=== PATIENT | female | born 1960 | race Caucasian/White ===

== ENCOUNTER 2017-07-21 09:54 | Observation (INO) | payer OTHER ==
--- NOTE | 2017-07-21 10:31 | PDOC ---
History of Present Illness - General Chief Complaint: Pain Stated Complaint: FOOT PAIN Time Seen by Provider: 07/21/17 10:19 History Source: Patient Exam Limitations: No Limitations - History of Present Illness Initial Comments: 07/21/17 10:45 57 yr female with c/o pain to the right lateral ankle for 2 days denies injury. Pt states she has pain, swelling and "feels hot". Pt denies fever neg nvd neg chills. Pt with history of Hepatitis. Past History - Past Medical History Allergies/Adverse Reactions: Allergies Allergy/AdvReac Type Severity Reaction Status Date / Time No Known Drug Allergies Allergy Verified 07/21/17 10:03 Home Medications: Ambulatory Orders Azathioprine 50 mg PO DAILY 07/02/13 Budesonide [Entocort EC -] 6 mg PO DAILY 07/02/13 Jason/D3/Mag11/Zinc/Masking Machine Operator/Kendrick/Bor [Caltrate 600+D Plus Tablet] 1 each PO DAILY Levothyroxine [Synthroid -] 75 mcg PO DAILY 07/02/13 Naproxen 250 mg PO BID #14 tablet 07/23/17 Ranitidine [Zantac -] 150 mg PO BID #6 tablet 07/23/17 Anemia: No Asthma: No Cancer: No COPD: No Dementia: No Diabetes: Yes Disorders: Yes (KIDNEY STONES) HTN: No Hypercholesterolemia: No Liver Disease: Yes Thyroid Disease: Yes (HYPO) - Surgical History Abdominal Surgery: Yes (TUMMY TUCK,BREAST LIFT) - Suicide/Smoking/Psychosocial Hx Smoking History: Never smoked Have you smoked in the past 12 months: No Hx Alcohol Use: No Drug/Substance Use Hx: No Substance Use Type: None Review of Systems - Review of Systems Able to Perform ROS?: Yes Is the patient limited Tamazight proficient: No Constitutional: No: Symptoms Reported HEENTM: No: Symptoms Reported Respiratory: No: Symptoms reported Cardiac (ROS): No: Symptoms Reported ABD/GI: No: Symptoms Reported : No: Symptoms Reported Musculoskeletal: Yes: Symptoms Reported *Physical Exam - Vital Signs Last Vital Signs Temp Pulse Resp BP Pulse Ox 99.8 F H 88 18 134/89 99 07/21/17 10:00 07/21/17 10:00 07/21/17 10:00 07/21/17 10:00 07/21/17 10:00 - Physical Exam General Appearance: Yes: Nourished, Appropriately Dressed HEENT: positive: EOMI, YOVANA Neck: positive: Supple. negative: Lymphadenopathy (R), Lymphadenopathy (L) Respiratory/Chest: positive: Lungs Clear, Normal Breath Sounds Extremity: positive: Normal Capillary Refill, Tender (right lateral ankle ), Erythema, Inflammation Integumentary: positive: Normal Color, Dry, Warm Neurologic: positive: curbing stonecutter II-XII NML intact, Fully Oriented, Alert, Normal Mood/ Affect ED Treatment Course - LABORATORY CBC & Chemistry Diagram: 07/22/17 06:00 07/23/17 06:20 - RADIOLOGY Radiology Studies Ordered: Category Date Time Status ANKLE & FOOT-RIGHT* [RAD] Stat Radiology 07/21/17 10:24 Ordered Medical Decision Making - Medical Decision Making 07/21/17 10:26 pt with c/o pain to the right ankle for 2 days swelling, redness warmth to touch pt denies injury , has history of hepatitis on immunosupresant drugs will get xray percocet for pain 11/14 med list: imuran budesonide synthroid 07/21/17 10:46 xray preliminary negative for fracture will send to main ER for further workup signed out to Maureen ADKINS in Main ER *DC/Admit/Observation/Transfer Diagnosis at time of Disposition: Ankle pain, right Qualifiers: Chronicity: acute Qualified Code(s): M25.571 - Pain in right ankle and joints of right foot - Discharge Dispostion Disposition: HOME Condition at time of disposition: Improved - Prescriptions - Referrals - Patient Instructions - Post Discharge Activity
--- NOTE | 2017-07-21 10:56 | PDOC ---
*Physical Exam - Vital Signs Last Vital Signs Temp Pulse Resp BP Pulse Ox 99.8 F H 88 18 134/89 99 07/21/17 10:00 07/21/17 10:00 07/21/17 10:00 07/21/17 10:00 07/21/17 10:00 <Joon Hurtado - Last Filed: 07/21/17 21:06> - Vital Signs Last Vital Signs Temp Pulse Resp BP Pulse Ox 99.8 F H 88 18 134/89 99 07/21/17 10:00 07/21/17 10:00 07/21/17 10:00 07/21/17 10:00 07/21/17 10:00 - Physical Exam General Appearance: Yes: Nourished, Appropriately Dressed. No: Apparent Distress Vascular Pulses: Dorsalis-Pedis (R): 2+, Doralis-Pedis (L): 2+ Extremity: positive: Normal Capillary Refill, Swelling (R ankle), Inflammation ( R ankle). negative: Normal Inspection, Normal Range of Motion (Pt unable to dorsiflex or dorsiextender her R ankle), Erythema (R ankle) Integumentary: positive: Normal Color, Dry, Swelling (R ankle), Other (R ankle is warm to the touch). negative: Erythema, Rash Neurologic: positive: Fully Oriented, Alert, Normal Mood/Affect, Normal Response <Maureen Claros - Last Filed: 07/21/17 21:27> ED Treatment Course - LABORATORY CBC & Chemistry Diagram: 07/21/17 11:33 07/21/17 11:33 - ADDITIONAL ORDERS Additional order review: Laboratory Results 07/21/17 11:33 Sodium 140 Potassium 3.5 Chloride 108 H Carbon Dioxide 27 Anion Gap 5 L BUN 13 Creatinine 0.8 Creat Clearance w eGFR > 60 Random Glucose 103 Uric Acid 4.3 Calcium 8.1 L Total Bilirubin 0.6 AST 23 ALT 35 Alkaline Phosphatase 124 H C-Reactive Protein 9.3 H Total Protein 6.5 Albumin 3.3 L 07/21/17 11:33 RBC 3.97 MCV 94.7 MCHC 34.4 RDW 14.1 MPV 10.0 Neutrophils % 81.1 Lymphocytes % 8.5 Monocytes % 8.9 Eosinophils % 0.9 Basophils % 0.6 - Medications Given in the ED: ED Medications Discontinued Medications Generic Name Dose Route Start Last Admin Trade Name Freq PRN Reason Stop Dose Admin Ketorolac Tromethamine 60 mg 07/21/17 11:59 07/21/17 12:22 Toradol Injection - IM 07/21/17 12:00 60 mg ONCE ONE Administration Lidocaine HCl 10 ml 07/21/17 18:59 07/21/17 20:23 Xylocaine 1% SQ 07/21/17 19:00 10 ml ONCE ONE Administration Oxycodone/Acetaminophen 1 combo 07/21/17 10:24 07/21/17 10:31 Percocet 5/325 - PO 07/21/17 10:25 1 combo ONCE ONE Administration <Joon Hurtado - Last Filed: 07/21/17 21:06> - LABORATORY CBC & Chemistry Diagram: 07/21/17 11:33 07/21/17 11:33 - Medications Given in the ED: ED Medications Discontinued Medications Generic Name Dose Route Start Last Admin Trade Name Freq PRN Reason Stop Dose Admin Oxycodone/Acetaminophen 1 combo 07/21/17 10:24 07/21/17 10:31 Percocet 5/325 - PO 07/21/17 10:25 1 combo ONCE ONE Administration <Sciliano,Maureen - Last Filed: 07/21/17 21:27> Medical Decision Making - Medical Decision Making 07/21/17 16:21 Patient is a 57-year-old female past medical history of hepatitis on immunosuppressants, who presents to the emergency department today for right ankle swelling. Patient was signed out from [facility]. Patient presents with a right swollen ankle for one day. Patient denies any trauma or fall. X-ray obtained from fast track is negative for fracture, evidence of osteoarthritis, osteomyelitis. Lab work shows a slightly elevated white blood cell count at 10.8 , CRP elevated at 9. ESR within normal limits. Uric acid also within normal limits. Possible septic joint? Paged ortho. Pt currently rates her pain an 8/ 10. Toradol ordered for pain. 07/21/17 17:[address] Landaverde. Given pt history on immunosuppresants and lack of trauma to the ankle in addition to swelling and inability to move the ankle, recommends aspiration and observation with ID consult as well. Pt. states her PCP is Ortega Macias 06/16/18 18:14 Pt. does not see Ortega Macias as he is a biscuit packer. She is unsure who her PCP is. Will admit to [facility]. Waiting for exam room to perform needle aspiration 07/21/17 19:11 Case discussed with night attending Dr. Rebollar who will take pt for obs in med surg. Still unable to perform needle aspiration. Sign out for procedure given to Dr. Joon Hurtado. <Maureen Claros - Last Filed: 07/21/17 21:27> *DC/Admit/Observation/Transfer <Joon Hurtado - Last Filed: 07/21/17 21:06> - Discharge Dispostion Decision to Admit order: Yes <Maureen Claros - Last Filed: 07/21/17 21:27> Diagnosis at time of Disposition: Ankle pain, right Qualifiers: Chronicity: acute Qualified Code(s): M25.571 - Pain in right ankle and joints of right foot - Discharge Dispostion Condition at time of disposition: Guarded Procedure Note Procedure: Joint aspiration performed on right ankle with minimal fluid return and mild blood return. Area prepared with iodine and pretreated with 5 ml of lidocaine 1 %. <Joon Hurtado - Last Filed: 07/21/17 21:06>
[2017-07-21 11:53] LABS: BASO % 0.6 % (0-2.0); EOS % 0.9 % (0-4.5); HEMATOCRIT 37.6 % (32.4-45.2); HEMOGLOBIN 12.9 GM/dL (10.7-15.3); LYMPH % 8.5 % (8-40); MCH 32.6 pg (25.7-33.7); MCHC 34.4 g/dl (32.0-36.0); MEAN CELL VOLUME 94.7 fl (80-96); MONO % 8.9 % (3.8-10.2); NEUT % 81.1 % (42.8-82.8); PLATELET COUNT 187 K/MM3 (134-434); RBC 3.97 M/mm3 (3.60-5.2); RDW 14.1 % (11.6-15.6); WHITE BLOOD COUNT 10.8 K/mm3 (4.0-10.0)
[2017-07-21] MEDS ORDERED: KETOROLAC TROMETHAMINE 60 MG/2 ML VIAL IM ONE (11:59)
[2017-07-21] MEDS ORDERED: KETOROLAC TROMETHAMINE 60 MG/2 ML VIAL ONE (12:18)
[2017-07-21 12:27] LABS: ALBUMIN 3.3 g/dl (3.4-5.0); ALK PHOS 124 U/L (45-117); ANION GAP 5 (8-16); BILIRUBIN,TOTAL 0.6 mg/dL (0.2-1.0); BLOOD UREA NITROGEN 13 mg/dL (7-18); CALCIUM 8.1 mg/dL (8.5-10.1); CHLORIDE 108 mmol/L (98-107); CO2 27 mmol/L (21-32); CREATININE 0.8 mg/dL (0.55-1.02); GLUCOSE,RANDOM 103 mg/dL (74-106); POTASSIUM 3.5 mmol/L (3.5-5.1); SGOT/AST 23 U/L (15-37); SGPT/ALT 35 U/L (12-78); SODIUM 140 mmol/L (136-145); TOT PROT 6.5 g/dl (6.4-8.2); URIC ACID 4.3 mg/dL (2.6-7.2)
[2017-07-21 15:41] LABS: ERYTHROCYTE SEDIMENTATION RATE 26 mm/hr (0-30)
[2017-07-21] MEDS ORDERED: LIDOCAINE HCL 1%, 10 MG/ML (50 mL VIAL) SQ ONE (18:59)
[2017-07-21] MEDS ORDERED: LIDOCAINE HCL 1%, 10 MG/ML (20ML VIAL) ONE (19:15)
[2017-07-21] MEDS ORDERED: KETOROLAC TROMETHAMINE 30 MG/1 ML VIAL IVPUSH ONE (21:05)
[2017-07-21] MEDS ORDERED: IBUPROFEN 400 MG TABLET (FP) PO PRN (21:27)
[2017-07-21] MEDS ORDERED: VANCOMYCIN 1,000 MG in DEXTROSE 5%-WATER - 250 ML IVPB ONE (21:27)
--- NOTE | 2017-07-21 21:28 | PN ---
Teaching Attending Note Name of Resident: Manfred Orellana ATTENDING PHYSICIAN STATEMENT I saw and evaluated the patient. Chart, data, imaging reviewed. I reviewed the resident's note and discussed the case with the resident. I agree with the resident's findings and plan as documented. SUBJECTIVE: 57-year-old woman with a Hx of autoimmune hepatitis on azathioprine and budesonide diagnosed 4 years ago, hypothyroidism, c/o right ankle swelling which started on 07/20, started by itself. Denied any trauma to ankle or twisting. Denied any fevers but c/o mild chills. There are no other joints affected. Pt denied any rashes, tick bites, or other insect bites. Sex with only, denied any history of STDs. Difficulty with ambulation. Xray of ankle taken, negative for fracture. Unsuccessful ankle arthrocentesis in ER. Ortho was contacted- Dr. Landaverde, is aware of case. CRP elevated at 9. Mild elevated wbc count. OBJECTIVE: Last Vital Signs Temp Pulse Resp BP Pulse Ox 99.3 F 65 15 146/89 98 07/22/17 00:39 07/22/17 00:39 07/22/17 00:39 07/22/17 00:39 07/22/17 00:39 general -nad, aaox3, appears comofortable heent - at, nc, moist oral mucosa neck -supple cv - s1+s2+rrr chest -cta abdomen- soft, nt msk- right ankle swollen, warm to touch, mild erythema, decreased ROM Abnormal Lab Results 07/21/17 07/21/17 11:33 11:33 WBC 10.8 H Chloride 108 H Anion Gap 5 L Calcium 8.1 L Alkaline Phosphatase 124 H C-Reactive Protein 9.3 H Albumin 3.3 L xray of ankle reviewed ASSESSMENT AND PLAN: #57yo woman, immunosuppressed on azathioprine and budesonide, with monoarthritis of right ankle. No Hx of trauma. Differential diagnosis includes but not limited to septic arthritis, gonococcal arthritis, lyme arthritis, crystal arthritis (goat vs pseudogout), rheumatological cause of arthritis- RA? . Given immunocompromised state, patient is certainly at higher risk of septic arhritis than general population. Less likely gonoccocal given patient's age and monogamy. -admit to med/surg -orthopedics consult for arthrocentesis - send cell count, crystals, culture -Lyme serolgoy -blood cultures x2 -crp, esr -send GC/chlamyidia NAAT from urine -pharngeal/cervical culture for GC -adequate pain control -ibuprofen prn -lower extremity elevation -vancomycin 1g IV stat -ceftriaxone 2g IV q24hrs -ID evaluation -BRODY, RF -c/w home medications -azathioprine, budesonide for now -ekg, cxr see resident note for details -regular diet -DVT ppx- heparin sc
--- NOTE | 2017-07-21 22:16 | HP ---
CHIEF COMPLAINT: ankle swelling PCP: none HISTORY OF PRESENT ILLNESS: 57 y/o f with PMH of autoimmune hepatitis came to hospital with a c omplaint of pain and swelling in her right ankle. started yesterday morning, continiously increasing. Denies trauma, twist, insect bite, swelling in any other joint, alcohol intake, no prior history. Denies fever and chills. Sexually active with . ER course was notable for: (1)cbc, cmp, xray (2) failed arthrocentesis (3) Recent Travel: no PAST MEDICAL HISTORY: as above PAST SURGICAL HISTORY: none Social History: none Family History: no significant falmy history Allergies No Known Drug Allergies Allergy (Verified 07/21/17 10:03) HOME MEDICATIONS: Home Medications Medication Instructions Recorded Azathioprine 50 mg PO DAILY 07/02/13 Budesonide [Entocort EC -] 6 mg PO DAILY 07/02/13 Jason/D3/Mag11/Zinc/Grab Operator/Kendrick/Bor 1 each PO DAILY 07/02/13 [Caltrate 600+D Plus Tablet] Levothyroxine [Synthroid -] 75 mcg PO DAILY 07/02/13 REVIEW OF SYSTEMS CONSTITUTIONAL: Absent: fever, chills, diaphoresis, generalized weakness, malaise, loss of appetite, weight change HEENT: Absent: rhinorrhea, nasal congestion, throat pain, throat swelling, difficulty swallowing, mouth swelling, ear pain, eye pain, visual changes CARDIOVASCULAR: Absent: chest pain, syncope, palpitations, irregular heart rate, lightheadedness , peripheral edema RESPIRATORY: Absent: cough, shortness of breath, dyspnea with exertion, orthopnea, wheezing, stridor, hemoptysis GASTROINTESTINAL: Absent: abdominal pain, abdominal distension, nausea, vomiting, diarrhea, constipation, melena, hematochezia GENITOURINARY: Absent: dysuria, frequency, urgency, hesitancy, hematuria, flank pain, genital pain MUSCULOSKELETAL: as above SKIN: Absent: rash, itching, pallor HEMATOLOGIC/IMMUNOLOGIC: Absent: easy bleeding, easy bruising, lymphadenopathy, frequent infections ENDOCRINE: Absent: unexplained weight gain, unexplained weight loss, heat intolerance, cold intolerance NEUROLOGIC: Absent: headache, focal weakness or paresthesias, dizziness, unsteady gait, seizure, mental status changes, bladder or bowel incontinence PSYCHIATRIC: Absent: anxiety, depression, suicidal or homicidal ideation, hallucinations. PHYSICAL EXAMINATION Vital Signs - 24 hr 07/21/17 10:00 Temperature 99.8 F H Pulse Rate 88 Respiratory 18 Rate Blood Pressure 134/89 O2 Sat by Pulse 99 Oximetry (%) GENERAL: Awake, alert, and fully oriented, in no acute distress. HEAD: Normal with no signs of trauma. EYES: Pupils equal, round and reactive to light, extraocular movements intact, EARS, NOSE, THROAT: Ears normal, nares patent, oropharynx clear without exudates. Moist mucous membranes. NECK: Normal range of motion, LUNGS: Breath sounds equal, clear to auscultation bilaterally. No wheezes, and no crackles. No accessory muscle use. HEART: Regular rate and rhythm, normal S1 and S2 ABDOMEN: Soft, nontender, not distended, normoactive bowel sounds, no guarding, no rebound, no masses. MUSCULOSKELETAL: Normal range of motion at all joints. No bony deformities or tenderness. No CVA tenderness. UPPER EXTREMITIES: 2+ pulses, warm, well-perfused. No cyanosis. No clubbing. No peripheral edema. LOWER EXTREMITIES: right ankle, tender, edematous, erythemtous, decrease range of motion. NEUROLOGICAL: Cranial nerves II-XII intact. Normal speech. PSYCHIATRIC: Cooperative. Good eye contact. SKIN: Warm, dry, normal Laboratory Results - last 24 hr 07/21/17 07/21/17 11:33 11:33 WBC 10.8 H RBC 3.97 Hgb 12.9 Hct 37.6 MCV 94.7 MCH 32.6 MCHC 34.4 RDW 14.1 Plt Count 187 MPV 10.0 Absolute Neuts (auto) 8.8 Neutrophils % 81.1 Lymphocytes % 8.5 Monocytes % 8.9 Eosinophils % 0.9 Basophils % 0.6 Nucleated RBC % 0 ESR 26 Sodium 140 Potassium 3.5 Chloride 108 H Carbon Dioxide 27 Anion Gap 5 L BUN 13 Creatinine 0.8 Creat Clearance w eGFR > 60 Random Glucose 103 Uric Acid 4.3 Calcium 8.1 L Total Bilirubin 0.6 AST 23 ALT 35 Alkaline Phosphatase 124 H C-Reactive Protein 9.3 H Total Protein 6.5 Albumin 3.3 L ASSESSMENT/PLAN: Right ankle swelling. d/d gout, pseudogout, septic, autoimmune, lyme, gonococcal follow nestor, rf, lyme antibody, MLEANY for gono limb elevation cold compression ibuprofen ankle brace orth consult vanco and ceftriaxone ID consult. autoimmune hepatitis continue home med second hand Dr pollock hypothyroidism continue home med orally allowed repeat electrolytes in am regular diet dvt pro; heparin sq dispo; obs med surg Visit type - Emergency Visit Emergency Visit: Yes ED Registration Date: 07/21/17 Care time: The patient presented to the Emergency Department on the above date and was hospitalized for further evaluation of their emergent condition. - New Patient This patient is new to me today: Yes Date on this admission: 07/22/17 - Critical Care Critical Care patient: No
[2017-07-22] MEDS ORDERED: KETOROLAC TROMETHAMINE 30 MG/1 ML VIAL ONE (00:12)
[2017-07-22] MEDS ORDERED: HEPARIN NA (PORCINE) 5,000 UNITS/ML 1ML VIAL ONE (00:12)
[2017-07-22] MEDS ORDERED: RANITIDINE HCL 150 MG TABLET (FP) ONE (00:12)
[2017-07-22] MEDS ORDERED: VANCOMYCIN 1 GRAM (PRE-DOCKED) 1,000 MG/250 ML BAG IVPB ONE (00:13)
[2017-07-22] MEDS: HEPARIN NA (PORCINE) 5,000 UNITS/ML 1ML VIAL SQ SCH ×4 (00:39→21:40)
[2017-07-22] MEDS: RANITIDINE HCL 150 MG TABLET (FP) PO SCH ×3 (00:39→21:40)
[2017-07-22 01:36] VITALS: BMI 27.3
[2017-07-22] MEDS: LEVOTHYROXINE NA 75 MCG TABLET (FP) PO SCH (06:06)
[2017-07-22 07:33] LABS: BASO % 0.7 % (0-2.0); EOS % 2.8 % (0-4.5); HEMATOCRIT 36.4 % (32.4-45.2); HEMOGLOBIN 12.7 GM/dL (10.7-15.3); LYMPH % 13.1 % (8-40); MCH 33.1 pg (25.7-33.7); MCHC 34.9 g/dl (32.0-36.0); MEAN CELL VOLUME 94.9 fl (80-96); MEAN PLT VOLUME 9.9 fl (7.5-11.1); MONO % 9.9 % (3.8-10.2); NEUT % 73.5 % (42.8-82.8); PLATELET COUNT 178 K/MM3 (134-434); RBC 3.83 M/mm3 (3.60-5.2); RDW 14.1 % (11.6-15.6); WHITE BLOOD COUNT 6.7 K/mm3 (4.0-10.0)
[2017-07-22 07:51] LABS: INR 1.09 (0.82-1.09); PROTHROMBIN TIME (PATIENT) 12.3 SEC (9.7-13.0)
[2017-07-22 07:59] LABS: ANION GAP 6 (8-16); BLOOD UREA NITROGEN 14 mg/dL (7-18); CALCIUM 8.4 mg/dL (8.5-10.1); CHLORIDE 109 mmol/L (98-107); CO2 27 mmol/L (21-32); CREATININE 0.8 mg/dL (0.55-1.02); GLUCOSE,RANDOM 92 mg/dL (74-106); MAGNESIUM 2.3 mg/dL (1.8-2.4); PHOSPHOROUS 3.9 mg/dL (2.5-4.9); SGOT/AST 36 U/L (15-37); SGPT/ALT 48 U/L (12-78); SODIUM 142 mmol/L (136-145)
[2017-07-22 08:01] LABS: ALK PHOS 121 U/L (45-117); BILIRUBIN,TOTAL 0.6 mg/dL (0.2-1.0)
[2017-07-22] MEDS ORDERED: CEFTRIAXONE 2 GM in DEXTROSE 5%-WATER 100 ML IVPB SCH (10:00)
[2017-07-22] MEDS ORDERED: BUDESONIDE 6 MG PO SCH (10:00)
[2017-07-22] MEDS ORDERED: DEXTROSE 5%-WATER 100 ML IVPB ONE (10:24)
[2017-07-22] MEDS: azaTHIOprine 50 MG TABLET PO SCH ×2 (10:55→19:45)
--- NOTE | 2017-07-22 13:02 | PN ---
Progress Note (short form) - Note Progress Note: Pt seen and examined. She is a 57 year old female with no recent h/o trauma or illness, or infection, who went to bed 2 days ago and was fine, aand woke up with right ankle pain, swelling. Attempted aspiration in ER, no fluid. She states it is getting better. AVSS Labs: WBC=6.7 ESR=26 CRP=9.3 PE Right foot and ankle look ok, only very mild swelling, no erythema No pain with full ROM of the foot or ankle Only very mildly hot, otherwise looks fine Xrays Of right foot and ankle are nl Imp Possible bug/spider bite. No active signs of infection. She does not have an intra articular infection. Orthopedically there are no issues. Rec Antibiotics today, then likely can DC home tomorrow. [facility]
[2017-07-22] MEDS ORDERED: KETOROLAC TROMETHAMINE 30 MG/1 ML VIAL IVPUSH ONE (15:28)
--- NOTE | 2017-07-22 15:40 | PN ---
Progress Note (short form) - Note Progress Note: ID consult Imp/reccd 57 year old woman with autoimmune hepatitis woke up with right ankle pain - unable to walk minimal erythema +swelling no fevers or chills monagomous no injury +FROM ankle joint started on vanco/rocephin in ED no signs of septic arthritis or cellulitis suspect inflammatory disease- has improved markedly overnight with nonsteroidals suggest d/c antibiotics and observe if pain persists consider rheum eval and MRI lyme sent and pending doubt STD- gc and chlymadia NAAT pending d/w hospitalist Problem List - Problems (1) Ankle pain, right Code(s): M25.571 - PAIN IN RIGHT ANKLE AND JOINTS OF RIGHT FOOT Qualifiers: Chronicity: acute Qualified Code(s): M25.571 - Pain in right ankle and joints of right foot
--- NOTE | 2017-07-22 15:43 | PN ---
Progress Note (short form) - Note Progress Note: Subjective: No fever or chills. denies trauma ,. denies bites. all of sudden joint pain started . Now better and able to bend her ankle . this am joint tap was tried with no fluid obtained . multiple attempts cause bruising . denies dysuria Objective: Vital Signs: Last Vital Signs Temp Pulse Resp BP Pulse Ox 98.2 F 60 18 127/72 98 07/22/17 05:50 07/22/17 05:50 07/22/17 05:50 07/22/17 05:50 07/22/17 06:29 Laboratory Results - last 24 hr 07/21/17 07/22/17 07/22/17 11:33 00:30 06:00 WBC 6.7 D RBC 3.83 Hgb 12.7 Hct 36.4 MCV 94.9 MCH 33.1 MCHC 34.9 RDW 14.1 Plt Count 178 MPV 9.9 Absolute Neuts (auto) 4.9 Neutrophils % 73.5 Lymphocytes % 13.1 D Monocytes % 9.9 Eosinophils % 2.8 D Basophils % 0.7 Nucleated RBC % 0 ESR 26 PT with INR INR Sodium Potassium Chloride Carbon Dioxide Anion Gap BUN Creatinine Creat Clearance w eGFR POC Glucometer Random Glucose Calcium Phosphorus Magnesium Total Bilirubin AST ALT Alkaline Phosphatase Total Protein Albumin Rheumatoid Factor < 10.0 07/22/17 07/22/17 07/22/17 06:00 06:00 06:04 WBC RBC Hgb Hct MCV MCH MCHC RDW Plt Count MPV Absolute Neuts (auto) Neutrophils % Lymphocytes % Monocytes % Eosinophils % Basophils % Nucleated RBC % ESR PT with INR 12.30 INR 1.09 Sodium 142 Potassium 4.0 Chloride 109 H Carbon Dioxide 27 Anion Gap 6 L BUN 14 Creatinine 0.8 Creat Clearance w eGFR > 60 POC Glucometer 84 Random Glucose 92 Calcium 8.4 L Phosphorus 3.9 Magnesium 2.3 Total Bilirubin 0.6 AST 36 ALT 48 Alkaline Phosphatase 121 H Total Protein 6.0 L Albumin 3.0 L Rheumatoid Factor Physical Exam: NAD CV: RRR Lungs: CATB Abd: soft, TTP in LLQ and suprapubic area. no rebound tenderness or guarding . bladder is percussed . EXt: R ankle with bruising over lateral malleolus . no erythema but increased warmth over joint . slightly limited range of motion onf R ankle . No erythema or edema on L leg /ankle. DP 2+ b/l Assessment/Plan: 57 y/o lady with h/o Autoimmune hepatitis , and hypothyroidism who presented with R ankle pain 1- R ankle pain and swelling : suspect inflammatory arthritis like CPPD , . gout is in DDx as well. unlikely autoimmune disease as asymmetric . reactive arthritis is less likely given her relation ship with her and no H/o STD. septic joint is unlikely . now joint is much better , probably toradol helpd - case d/w Dr. Warren. hold Abx and monitor - will give another dose of toradol and cont IBuprofen - repeat CRP tomorrow - PT - Gc/Ch in urine - if no improvement will ask rheum to eval. ? MRI - US given her recent travel 2- Abd tenderness. r/o UTI . bladder is percussed - check UA - check bladder scan for PVR 3- DVT PX 4- autoimmune hepatitis : cont imuran HLOC Visit type - Emergency Visit Emergency Visit: Yes ED Registration Date: 07/22/17 Care time: The patient presented to the Emergency Department on the above date and was hospitalized for further evaluation of their emergent condition. - New Patient This patient is new to me today: Yes Date on this admission: 07/22/17 - Critical Care Critical Care patient: No
--- NOTE | 2017-07-22 16:21 | CONS ---
DATE OF CONSULTATION: 07/22/2017 REQUESTED BY: Hospitalist Service This is a 57-year-old woman with a past medical history of autoimmune hepatitis diagnosed about 4 years ago. She is followed by Dr. Pinto and is on azathioprine. She developed acute onset of pain and swelling in her right ankle that started the day prior to admission; became so bad she had difficulty ambulating. There was no trauma. She denies any ankle strain. She denies any bites. She denies prior history of gout or other ankle swelling. She denies any tick bites. She denies prolonged periods of standing up, though recently she just returned, a week ago, from a trip to [place]. She went by car. She is monogamous. Denies any fevers or chills and otherwise feels well. Overnight, she received Toradol, vancomycin, and ceftriaxone and reports improvement in her ankle. PAST MEDICAL HISTORY: Notable for autoimmune hepatitis, hypothyroidism. SURGICAL HISTORY: Negative. She has no known drug allergies. MEDICATIONS AT HOME: Synthroid; vitamin D; budesonide; azathioprine. FAMILY HISTORY: Unremarkable. SOCIAL HISTORY: She is . She works as a business operations consultant. No history of any substance use. She is originally from [facility], but has not been back to [facility] in years. REVIEW OF SYSTEMS: She has had no weight loss, no constitutional symptoms at all. She has no rash. She has no nausea, vomiting, or night sweats. Her last dental visit was 3 months ago. PHYSICAL EXAMINATION: Vital Signs: Temperature maximum was 99.8, current temperature is 98.2, pulse of 60, blood pressure 127/72, respiratory rate is 18. HEENT: She is normocephalic. Her eyes are anicteric. She has no thrush or pharyngitis. She has good dentition. Neck: Supple. She has no cervical adenopathy. Lungs: Clear to auscultation. Heart: Regular rate and rhythm. Abdomen: Soft. She has some mild discomfort on lower abdominal palpation. Extremities: Full range of motion of the right ankle joint, which she is able to do actively on her own. On the lateral malleolus, there is evidence of attempted arthroscopy with some ecchymosis; she reports was attempted last night unsuccessfully. LABORATORIES: Notable for a white count yesterday of 10.8, today 7.6. Sedimentation rate is 26. BUN 14 and creatinine 0.8 with an alkaline phosphatase of 121. Her rheumatoid factor is back at less than 10. Her lyme serology has been ordered and is pending. X-ray of the ankle is notable for minimal lateral malleolar soft tissue swelling; otherwise, there is no evidence of fracture, subluxation, or bone destruction. SUMMARY: This is a 57-year-old woman with autoimmune hepatitis who woke up with right ankle pain. There are no signs of septic arthritis or cellulitis. I suspect this is likely inflammatory disease. It is improved markedly overnight. I suggest we stop her antibiotics and observe. If pain persists, would consider rheumatology evaluation and MRI. Lyme has been sent and is pending. I doubt STD, but GC and chlamydia are pending as well. Case was discussed with the hospitalist. SHAILESH DING M.D. [id number]
[2017-07-22 17:38] LABS: URINE APPEARANCE CLEAR; URINE BILIRUBIN NEGATIVE (<2.0 mg/dL); URINE COLOR STRAW; URINE GLUCOSE (UA) NEGATIVE (NEGATIVE); URINE KETONE NEGATIVE (NEGATIVE); URINE LEUK ESTERASE NEGATIVE (NEGATIVE); URINE NITRITE NEGATIVE (NEGATIVE); URINE PROTEIN NEGATIVE (NEGATIVE)
[2017-07-23] MEDS: HEPARIN NA (PORCINE) 5,000 UNITS/ML 1ML VIAL SQ SCH (06:10)
[2017-07-23] MEDS: LEVOTHYROXINE NA 75 MCG TABLET (FP) PO SCH (06:13)
[2017-07-23 08:20] LABS: ANION GAP 7 (8-16); BLOOD UREA NITROGEN 13 mg/dL (7-18); CALCIUM 8.7 mg/dL (8.5-10.1); CHLORIDE 107 mmol/L (98-107); CO2 28 mmol/L (21-32); GLUCOSE,RANDOM 89 mg/dL (74-106); SODIUM 142 mmol/L (136-145)
[2017-07-23 08:22] LABS: CREATININE 0.8 mg/dL (0.55-1.02)
--- NOTE | 2017-07-23 08:46 | PN ---
Progress Note (short form) - Note Progress Note: Ortho Pt seen and examined- right ankle/foot feeling much better PE- minimal swelling, no erythema, minimal ttp, good ROM nvi a/p Orthopedically stable WBAT ok to d/c from ortho pov f/u as outpt if needed d/w Dr. Landaverde
--- NOTE | 2017-07-23 09:07 | PN ---
Progress Note (short form) - Note Progress Note: feels much better this am minimal pain ambulation is improved Vital Signs Period Temp Pulse Resp BP Sys/Negrete Pulse Ox Last 24 Hr 97.8 F-99 F 57-71 18-18 125-142/62-77 96-98 cor-rrr lungs clear abd soft,nt ext minimal swelling- much improved of the foot, FROM ankle CBC, BMP 07/22/17 06:00 07/23/17 06:20 a/p most likely inflammatory arthritis clinically much improved f/u serologies as outpt suggest rheumatolgy eval if symptoms recur please call back if needed Problem List - Problems (1) Ankle pain, right Code(s): M25.571 - PAIN IN RIGHT ANKLE AND JOINTS OF RIGHT FOOT Qualifiers: Chronicity: acute Qualified Code(s): M25.571 - Pain in right ankle and joints of right foot
[2017-07-23] MEDS ORDERED: PT OWN MED DRAWER 7, Y5N ONE (10:11)
[2017-07-23 10:13] VITALS: BP 122/73; PULSE 63; TEMP 98
[2017-07-23] MEDS: azaTHIOprine 50 MG TABLET PO SCH (10:13)
[2017-07-23] MEDS: RANITIDINE HCL 150 MG TABLET (FP) PO SCH (10:13)
--- NOTE | 2017-07-23 10:53 | CONS ---
DATE OF CONSULTATION: DATE OF DICTATION: 07/23/2017 HISTORY: The patient is a 57-year-old woman with autoimmune hepatitis for the last several years. She woke up with right ankle pain. She was unable to walk. She had minimal erythema, and she noted some swelling. There were no fevers or chills. She is monogamous. She denies any injuries or any bites to her legs. She was evaluated in the emergency room. X-ray of the ankle was done, which was unremarkable. Aspiration was attempted, which was unsuccessful. She was given vancomycin and ceftriaxone and admitted. When I saw her yesterday, she reported much improvement in her symptoms. She has as well received Toradol. PAST MEDICAL HISTORY: Notable for history of hypothyroidism. She has had kidney stones in the past. She has autoimmune hepatitis. PAST SURGICAL HISTORY: Notable for a tummy tuck and breast lift. ALLERGIES: She has no known drug allergies. MEDICATIONS: Include Azathioprine, Entocort 6 mg daily, calcium with vitamin D, and levothyroxine. SOCIAL HISTORY: She is . She is monogamous. She lives with her . She works as a business office director. She is not on her feet that much. She denies any falls, trips, ankle sprains. She has never had any joint swelling as well. REVIEW OF SYSTEMS: There is no nausea, vomiting, diarrhea, dysuria. She feels well. PHYSICAL EXAMINATION: Vital Signs: She is afebrile. T-max 99.8 in the ER. Her vital signs when she was seen temperature 98.1, pulse of 57, blood pressure 125/77, respiratory rate 18. Skin: She has minimal swelling of the ankle. There is no cellulitis. She has evidence of ecchymosis on the lateral malleolus where they attempted to do arthrocentesis. HEENT: She is normocephalic. Her eyes are anicteric. Neck: Supple. Lungs: Clear to auscultation. Heart: Regular rate and rhythm. Abdomen: Soft and nontender. Extremities: Notable for full range of motion of the ankle joint independently both passively and actively. She has got ecchymoses on the lateral malleolus where the arthrocentesis was attempted. She has no edema of the foot or ankle. DIAGNOSTIC DATA: Her white count on admission was 10.8, repeat 6.7, hemoglobin 12.7. Chemistries: Calcium 8.4, alkaline phosphatase 121, sedimentation rate 26 with a CRP of 9.3 then on repeat 9.3. Urinalysis is negative. Rheumatoid factor is less than 10. No cultures were sent. X-ray findings were as previously stated. Additional history from the family, she was just returned from [place] where she had been on a long car trip. In summary, this is a 57-year-old woman with right ankle pain. No signs of septic arthritis or cellulitis. Suspect this is inflammatory disease as it has improved markedly overnight with nonsteroidals. I would suggest, given the lack of fever or white count, we stop her antibiotics and observe. If her pain persists, would consider evaluation and MRI. Lyme serology has been sent and is pending. I doubt an STD, but GC and Chlamydia NAATs are pending as well. As well would obtain a duplex of her legs given the car trip. All of the above was discussed with the hospitalist. SHAILESH DING M.D. [id number]
--- NOTE | 2017-07-23 14:07 | PN ---
Teaching Attending Note Name of Resident: Sherrill Gloria ATTENDING PHYSICIAN STATEMENT I saw and evaluated the patient. I reviewed the resident's note and discussed the case with the resident. I agree with the resident's findings and plan as documented. SUBJECTIVE: No fever or chills. No abd pain . no dysuria . R ankle pain has much improved OBJECTIVE: NAD CV: RRR Lungs: CATB Abd: soft, minimal TTP in LLQ . no rebound tenderness or guarding . EXt: R ankle with bruising over lateral malleolus. no erythema Nl temperature. improved range of motion on R ankle. No erythema or edema on L leg /ankle. DP 2 + b/l Assessment/Plan: 57 y/o lady with h/o Autoimmune hepatitis , and hypothyroidism who presented with R ankle pain 1- R ankle pain and swelling :likely inflammatory ( ? CPPD) . improved significantly . cont naproxen BID x 3 dayas then BID PRN x 4 days . i ffever ro chills, or worsening , she was advised to come to ER given Dr. Ventura number to follow with Lyme serology, G/C to be followed gait was observed, steady with some limping 2- Abd tenderness. No UTI. no urinary retention ( PVR 0 ) . 3- autoimmune hepatitis : cont imuran dispo : DC home
[2017-07-23] MEDS ORDERED: BUDESONIDE 6 MG PO SCH (16:30)
--- NOTE | 2017-07-23 20:24 | DS ---
Physical Exam: SUBJECTIVE: Patient seen and examined at bedside. No acute events overnight. Today, pt states that the pain in her ankle has improved. Looking forward to going home. Denies fever, fatigue, SOB, chest pain or pressure, or changes in urinary or bowel function. OBJECTIVE: Vital Signs Period Temp Pulse Resp BP Sys/Negrete Pulse Ox Last 24 Hr 97.8 F-99 F 57-71 18-18 122-142/62-77 96-96 PHYSICAL EXAM GENERAL: The patient is awake, alert, and fully oriented, in no acute distress. HEAD: Normal with no signs of trauma. EYES: PERRL, extraocular movements intact, sclera anicteric, conjunctiva clear. ENT: Ears normal, nares patent NECK: Trachea midline, full range of motion, supple. LUNGS: Breath sounds equal, clear to auscultation bilaterally, no wheezes, no crackles, no accessory muscle use. HEART: Regular rate and rhythm, S1, S2 without murmur, rub or gallop. ABDOMEN: Soft, +mildly TTP suprapubic region, nondistended, normoactive bowel sounds, no guarding, UPPER EXTREMITIES: 2+ radial pulses. without evidence of swollen joints. LOWER EXTREMITIES: 2+ pt pulses. + R ankle - with edema, increased warmth. decreased ROM in plantar flexion, and inversion and eversion of ankle. diffusely TTP NEUROLOGICAL: Cranial nerves II through XII grossly intact. Normal speech, gait not observed. PSYCH: Normal mood, normal affect. SKIN: Warm, dry, normal turgor, no rashes or lesions noted. LABS 07/23/17 06:20 Sodium 142 Potassium 4.0 Chloride 107 Carbon Dioxide 28 Anion Gap 7 L BUN 13 Creatinine 0.8 Creat Clearance w eGFR > 60 Random Glucose 89 Calcium 8.7 C-Reactive Protein 5.6 H CBC Trend 07/21/17 07/22/17 11:33 06:00 WBC 10.8 H 6.7 D Hgb 12.9 12.7 Hct 37.6 36.4 Plt Count 187 178 Urinalysis 07/22/17 16:00 Urine Color Straw Urine Appearance Clear Urine pH 6.0 Ur Specific [place] 1.005 Urine Protein Negative Urine Glucose (UA) Negative Urine Ketones Negative Urine Blood Negative Urine Nitrite Negative Urine Bilirubin Negative Urine Urobilinogen 2.0 H Ur Leukocyte Esterase Negative Immunologic Panel/Rheum 07/21/17 07/22/17 07/22/17 21:18 00:30 00:30 Pharyngeal C. trach MELANY Pending Phary N.gonorrhoeae MELANY Pending Rheumatoid Factor < 10.0 Lyme Antibody Value Pending C. trachomatis (MELANY) N. gonorrhoeae (MELANY) 07/22/17 16:00 Lyme Antibody Value C. trachomatis (MELANY) Pending N. gonorrhoeae (MELANY) Pending Imaging 07/21/17: R foot/ankle XR: minimal lateral malleolar soft tissue swelling. if persist, further imaging and ortho consult may be of help 07/22/17: RLE vascular study: (-) for DVT HOSPITAL COURSE: Date of Admission:07/21/17 Date of Discharge: 07/23/17 Admit diagnosis: R ankle edema 57 y/o F with a Hx of autoimmune hepatitis on azathioprine and budesonide diagnosed 4 years ago, hypothyroidism, c/o right ankle swelling which started on 07/20, started by itself. Denied any trauma to ankle or twisting. Denied any fevers but c/o mild chills. No other joints affected. Pt denied any rashes, tick bites, or other insect bites. Xray of ankle was taken, and negative for fracture, duplex was also (-) for DVT. CRP was elevated, along with a mildly elevated white count. RF (-) and UA without significant findings. She was also seen by ID and cellulitis was r/o. Ankle arthrocentesis was unsuccessful in ER. Pt admitted for R ankle edema. Pt sx improved quickly with toradol and ibuprofen. She is d/c on naproxen 250mg PO BID x3 days LEONEL, and PRN for remaining 4 days. Will f/u with PCP , referred to Dr. Robles as well as rheum, Dr. Kaufman. On follow-up, pending labs will be discussed; lyme ab, c. trachomatis, n. gonorrhea. Minutes to complete discharge: 44 Discharge Summary Reason For Visit: RIGHT ANKLE PAIN Condition: Improved - Instructions Diet, Activity, Other Instructions: You were in the hospital because you had pain in your right ankle. You were given medications to control your pain. You also had an X-ray taken of your ankle which showed no fracture or dislocation. Your visit You were seen by the medicine and infection teams Medicine You may continue your home medications. We are also sending you home on a medicine for pain: Naproxen 250 mg (1 tablet) twice a day for three days. During this time, please take Zantac 150mg twice a day. This will help ease any stomach discomfort from naproxen. After three days, only take naproxen pill twice a day for the following four days when needed for pain. Care We recommend increasing your physical activity gradually. You may ice the affected area for relief. Follow up Please follow up with the following doctors: -Dr. Robles, a primary care doctor - to help establish care: 1 week. She will need to follow up on the labs you had done in the hospital, including: lyme disease tests, gonorrhea/chymidia tests, BRODY -Dr. Kaufman, a engine repair supervisor (joint doctor) : 1 week If you develop chest pain or shortness of breath, please go to the hospital. We hope you feel better soon. Referrals: Dave Robles MD [Staff Physician] - 1 Week Carrillo Kaufman MD [Staff Physician] - 1 Week Disposition: HOME - Home Medications Comprehensive Discharge Medication List: Ambulatory Orders Azathioprine 50 mg PO DAILY 07/02/13 Budesonide [Entocort EC -] 6 mg PO DAILY 07/02/13 Jason/D3/Mag11/Zinc/Net Wpf Developer/Kendrick/Bor [Caltrate 600+D Plus Tablet] 1 each PO DAILY Levothyroxine [Synthroid -] 75 mcg PO DAILY 07/02/13 Naproxen 250 mg PO BID #14 tablet 07/23/17 Ranitidine [Zantac -] 150 mg PO BID #6 tablet 07/23/17 This patient is new to me today: Yes Date on this admission: 07/23/17 Emergency Visit: No Critical Care patient: No - Discharge Referral Referred to [facility] No
== END 2017-07-23 16:22 | disposition home or self-care (01) | DRG 351 ==
LOC: JER 09:54 → JERBED 19:36 → OBSVTOIN 19:36 → INTOOBSV 19:36 → J7W 07-22 00:55 → INTOOBSV 07-22 02:25 → OBSVTOIN 07-22 02:25 → UNDODISOB 07-23 16:22
PROVIDERS: ADMIT Internal Medicine; ATTEND Internal Medicine
PROC: 3E0333Z Introduction of Anti-inflammatory into Peripheral Vein, Percutaneous Approach (ICD-10-PCS; principal; 2017-07-21)
PROC: 3E03329 Introduction of Other Anti-infective into Peripheral Vein, Percutaneous Approach (ICD-10-PCS; 2017-07-21)
PROC: 3E013GC Introduction of Other Therapeutic Substance into Subcutaneous Tissue, Percutaneous Approach (ICD-10-PCS; 2017-07-21)
DX: M25.571 Pain in right ankle and joints of right foot (principal); K75.4 Autoimmune hepatitis; E03.9 Hypothyroidism, unspecified
CPT/HCPCS: 36415; 73610-TC-RT-FY; 73630-TC-RT-FY; 80048; 80053; 81003; 82962; 83735; 84100; 84550; 85025; 85610; 85651; 86140; 86431; 86618; 87491; 87591; 93971-TC; 96365; 96372; 96375; 96376; 97116-GP; 97161-GP; 99285-25; G0378; J1644

== ENCOUNTER → 2020-05-26 | Day surgery (SDC) | payer OTHER | END | disposition home or self-care (01) | LOC: JRADUS-SUR 12:12 | PROVIDERS: ATTEND Family Medicine Geriatric Medicine | PROC: 0H9T3ZX Drainage of Right Breast, Percutaneous Approach, Diagnostic (ICD-10-PCS; principal; 2020-05-26) | DX: D24.1 Benign neoplasm of right breast (principal) | CPT/HCPCS: 19083; 87899; A4648 ==

== ENCOUNTER 2020-11-11 04:41 | Day surgery (SDC) | payer OTHER ==
[2020-11-11 08:14] VITALS: BMI 25.6
[2020-11-11] MEDS ORDERED: KETAMINE HCL 500 MG/10 ML VIAL ONE (08:44)
[2020-11-11 09:27] VITALS: TEMP 96.6
[2020-11-11 10:02] VITALS: BP 135/83; PULSE 64
== END 2020-11-11 10:13 | disposition home or self-care (01) ==
LOC: JASU-ENDO 04:41
PROVIDERS: ATTEND Internal Medicine Gastroenterology
PROC: 0DBC8ZX Excision of Ileocecal Valve, Via Natural or Artificial Opening Endoscopic, Diagnostic (ICD-10-PCS; 2020-11-11)
PROC: 0DB78ZX Excision of Stomach, Pylorus, Via Natural or Artificial Opening Endoscopic, Diagnostic (ICD-10-PCS; 2020-11-11)
PROC: 0DBL8ZX Excision of Transverse Colon, Via Natural or Artificial Opening Endoscopic, Diagnostic (ICD-10-PCS; principal; 2020-11-11 08:30)
DX: Z12.11 Encounter for screening for malignant neoplasm of colon (principal); D12.3 Benign neoplasm of transverse colon; D12.0 Benign neoplasm of cecum; K29.50 Unspecified chronic gastritis without bleeding; K57.30 Diverticulosis of large intestine without perforation or abscess without bleeding; R10.13 Epigastric pain
CPT/HCPCS: 88305-TC; 88342-TC

== ENCOUNTER 2022-07-17 10:49 | Emergency (ER) | payer OTHER ==
[2022-07-17 11:24] VITALS: BP 125/82; PULSE 81; RESP 18; TEMP 98.7; BMI 24.7
[2022-07-17] MEDS ORDERED: predniSONE 20 MG TABLET (UD) PO ONE (11:54)
[2022-07-17] MEDS ORDERED: diphenhydrAMINE HCL 25 MG CAPSULE (FP) PO ONE ×2 (11:54→11:57)
[2022-07-17] MEDS ORDERED: predniSONE 20 MG TABLET (UD) ONE (11:57)
== END 2022-07-17 12:18 | disposition home or self-care (01) ==
LOC: JERFT 10:49
DX: R21 Rash and other nonspecific skin eruption (principal); L29.9 Pruritus, unspecified
CPT/HCPCS: 99283-25